=== PATIENT | male | born 1980 | race Caucasian/White ===

== ENCOUNTER 2019-09-02 15:26 | Emergency (ER) | payer SELFPAY ==
[2019-09-02] MEDS ORDERED: Fentanyl 100 MCG/2 ML VIAL ONE ×2 (15:52→16:45)
--- NOTE | 2019-09-02 17:14 | RAD ---
EXAM: LEFT KNEE FOUR VIEWS: 09/02/19 HISTORY: Injury left knee from trauma. FINDINGS: There is some soft tissue swelling of the knee and what appears to be some minimal air within the lat eral soft tissues. In addition, there is a slightly comminuted nondisplaced fracture involving the le ft tibia metaphysis and extending probably into the epiphysis. It is definitely extending intra-artic ularly with evidence for a fat fluid level within a distended suprapatellar recess. IMPRESSION: Slightly comminuted nondisplaced proximal tibial fracture primarily involving the metaphysis but may well extend into the epiphysis. It certainly extends intra-articularly with evidence for a fat fluid layer within a distended suprapatellar recess. Minimal soft tissue air noted in the lateral soft tiss ues. POS: RRE
[2019-09-02] MEDS ORDERED: HYDROmorphone 0.5 MG/0.5 ML SYRINGE ONE (17:52)
[2019-09-02] MEDS ORDERED: HYDROcodone/Acetaminophen 10/325 mg Tablet ONE (19:36)
== END 2019-09-02 19:54 | disposition home or self-care (01) ==
LOC: MADERS 15:26
DX: S89.002A Unspecified physeal fracture of upper end of left tibia, initial encounter for closed fracture (principal); I82.461 Acute embolism and thrombosis of right calf muscular vein; M25.462 Effusion, left knee; V63.5XXA Driver of heavy transport vehicle injured in collision with car, pick-up truck or van in traffic accident, initial encounter
CPT/HCPCS: 96374; 96375; 96376; G0390; J1170; J3010